=== PATIENT | male | born 2005 | race Two or more races ===

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

== ENCOUNTER 2024-11-17 09:08 | Emergency (ER) | payer BC, OTHER ==
[~2024-11-17] VITALS: Ht 180.3 cm; Wt 144.3 kg
[~2024-11-17 09:08] MED LIST: IBUP-1456 PO; METH-1182 PO
[2024-11-17] MEDS ORDERED: IBUP-1456 PO (10:38)
[2024-11-17] MEDS ORDERED: METH-1182 PO (10:38)
[2024-11-17 10:45] VITALS: BP 117/62; PULSE 81; RESP 18; TEMP 98.2; O2SAT 97
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
== END 2024-11-17 10:53 | disposition home or self-care (01) ==
LOC: ER 09:08
DX: S80.211A Abrasion, right knee, initial encounter (principal); R51.9 Headache, unspecified; V89.2XXA Person injured in unspecified motor-vehicle accident, traffic, initial encounter; Y93.55 Activity, bike riding; Y92.89 Other specified places as the place of occurrence of the external cause; Y99.8 Other external cause status